=== PATIENT | female | born 1975 | race Two or more races ===

== ENCOUNTER 2022-09-20 19:04 | Emergency (ER) | payer OTHER ==
[~2022-09-20] VITALS: Ht 167.6 cm; Wt 63.5 kg
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
[2022-09-20] MEDS ORDERED: MORPHINE SULFATE INJ 4 MG/ML DISP.SYRIN ONE (19:43)
--- NOTE | 2022-09-20 19:49 | NUR ---
PT SIGNED WAIVER
--- NOTE | 2022-09-20 19:54 | NUR ---
PT TAKEN TO CT VIA FREEDOM
[2022-09-20] MEDS ORDERED: MORPHINE SULFATE INJ 2 MG/ML DISP.SYRIN IV ONE (20:00)
--- NOTE | 2022-09-20 20:06 | NUR ---
PT BACK FROM CT
--- NOTE | 2022-09-20 20:13 | NUR ---
[facility] AT PT'S BEDSIDE
[2022-09-20] MEDS ORDERED: KETO10TA2 PO ×2 (21:15→21:28)
[2022-09-20] MEDS ORDERED: TRAM-351 PO ×2 (21:15→21:28)
[2022-09-20 21:46] VITALS: BP 146/93
--- NOTE | 2022-09-20 21:46 | NUR ---
Patient discharged to home in stable condition. Written and verbal after care instructions given. Patient verbalizes understanding of instruction.IV removed. Catheter intact and site benign. Pressure and 4x4 applied to site. No bleeding noted.
== END 2022-09-20 21:47 | disposition home or self-care (01) ==
LOC: ER 19:05
DX: R07.89 Other chest pain (principal); R10.32 Left lower quadrant pain; I10 Essential (primary) hypertension; Z79.899 Other long term (current) drug therapy; V89.2XXA Person injured in unspecified motor-vehicle accident, traffic, initial encounter; Y93.89 Activity, other specified; Y92.89 Other specified places as the place of occurrence of the external cause; Y99.8 Other external cause status
CPT/HCPCS: 99285; 71250; 96374; 74176; J2270